=== PATIENT | male | born 1950 | race American Indian/Alaskan Native ===

== ENCOUNTER 2021-02-05 13:24 | Emergency (ER) | payer SELFPAY ==
[2021-02-05 13:41] VITALS: BP 146/93
--- NOTE | 2021-02-05 14:00 | Emergency Department Report ---
ED General Adult HPI - General Chief complaint: BP Check / Ring removal req Stated complaint: UNSURE OF 2ND DRUG Time Seen by Provider: 02/05/21 13:45 Source: patient Mode of arrival: Ambulatory Limitations: No Limitations - History of Present Illness Initial comments: 70-year-old -[place] male patient with history of hypertension presents with possible accidental overdose of his blood pressure medication. Patient states that he is unsure if he took a second dose of his blood pressure medication after his first dose this morning. He states he just wants to get checked out and is feeling well. He denies any dizziness, headache, chest pain, shortness of breath, racing heart/palpitations, weakness, fatigue, or other symptoms. Patient reports he took the medication a few hours ago. He is unsure of the name of his blood pressure medication but does know he takes it once daily. Patient states he went to the gym after he took his blood pressure medication and felt fine during and after his workout - Related Data Allergies Allergy/AdvReac Type Severity Reaction Status Date / Time No Known Allergies Allergy Verified 02/05/21 13:39 ED Review of Systems ROS: Stated complaint: UNSURE OF 2ND DRUG Other details as noted in HPI Constitutional: denies: chills, diaphoresis, weakness Eyes: denies: vision change Respiratory: denies: shortness of breath Cardiovascular: denies: chest pain Gastrointestinal: denies: abdominal pain, nausea, vomiting Skin: denies: change in color Neurological: denies: headache ED Physical Exam - General Limitations: No Limitations General appearance: alert, in no apparent distress - Head Head exam: Present: atraumatic, normocephalic - Eye Eye exam: Present: normal appearance - Respiratory Respiratory exam: Present: normal lung sounds bilaterally. Absent: respiratory distress - Cardiovascular Cardiovascular Exam: Present: regular rate, normal rhythm - Neurological Exam Neurological exam: Present: alert, oriented X3, normal gait - Psychiatric Psychiatric exam: Present: normal affect, normal mood - Skin Skin exam: Present: warm, dry, intact, normal color. Absent: rash, cyanosis, diaphoretic, pallor ED Course Vital Signs 02/05/21 13:40 Temperature 98.8 F Pulse Rate 76 Respiratory 20 Rate Blood Pressure 146/93 O2 Sat by Pulse 97 Oximetry ED Medical Decision Making - Medical Decision Making 70-year-old -[place] male patient with history of hypertension presents with possible accidental overdose of his blood pressure medication. Patient states that he is unsure if he took a second dose of his blood pressure medication after his first dose this morning. He states he just wants to get checked out and is feeling well. He denies any dizziness, headache, chest pain, shortness of breath, racing heart/palpitations, weakness, fatigue, or other symptoms. Patient reports he took the medication a few hours ago. He is unsure of the name of his blood pressure medication but does know he takes it once daily. Patient states he went to the gym after he took his blood pressure medication and felt fine during and after his workout Blood pressure is 146/93. Patient states he is feeling well and continues to deny any dizziness or other symptoms. He is well-appearing and stable for discharge home. Patient to rest today and monitor for symptoms of dizziness, headache, nausea/vomiting, fatigue/weakness, chest pain, shortness of breath, or other sudden changes. He is to follow-up with his primary care doctor within 3 to 5 days. Critical care attestation.: If time is entered above; I have spent that time in minutes in the direct care of this critically ill patient, excluding procedure time. ED Disposition Clinical Impression: Accidental overdose Disposition: 01 HOME / SELF CARE / HOMELESS Is pt being admited?: No Condition: Stable Referrals: PRIMARY CARE, [Referring] - 3-5 Days
== END 2021-02-05 14:18 | disposition home or self-care (01) ==
LOC: ED 13:24
DX: T50.991A Poisoning by other drugs, medicaments and biological substances, accidental (unintentional), initial encounter (principal); Y92.89 Other specified places as the place of occurrence of the external cause
CPT/HCPCS: 99282